=== PATIENT | male | born 1995 | race Caucasian/White ===

== ENCOUNTER 2016-11-02 14:27 | Emergency (ER) | payer OTHER ==
[~2016-11-02] VITALS: Ht 180.3 cm; Wt 73.0 kg
[2016-11-02 14:30] VITALS: BP 165/86; PULSE 18; PULSE 76; RESP 15; TEMP 98.1; O2SAT 99
[2016-11-02] MEDS ORDERED: MORPHINE SULFATE 4 MG/ML INJ IV PUSH ONE (15:15)
--- NOTE | 2016-11-02 15:28 | RADRPT ---
EXAM DATE/TIME: 11/02/2016 14:50 [facility] COMPARISON: No previous studies available for comparison. INDICATIONS : Dislocation. MEDICAL HISTORY : dislocation of right shoulder SURGICAL HISTORY : None. ENCOUNTER: Initial ACUITY: 1 day PAIN SCORE: 10/10 LOCATION: Right shoulder FINDINGS: There is anterior dislocation of the glenohumeral joint. I don't see a displaced fracture. Soft tissu es are within normal limits. CONCLUSION: Anteriorly dislocated glenohumeral joint. Steve Low MD on November 02, 2016 at 15:26 Board Certified Radiologist. This report was verified electronically.
[2016-11-02] MEDS ORDERED: PROPOFOL 500 MG/50 ML BTL IV ONE (15:30)
--- NOTE | 2016-11-02 16:24 | PD ---
HPI Chief Complaint: Injury Time Seen by Provider: 15:10 Travel History International Travel<30 days: No Contact w/Intl Traveler<30days: No Traveled to known affect area: No History of Present Illness HPI Patient is a 20-year-old male who [place] the [place] when he fell dislocating his right shoulder. Patient states he's had one prior dislocation of his right shoulder and at that time he had to be given a dose of morphine and was able to be reduced. [place]. Denies any alcohol or drug abuse tonight. Denies any head neck back pain or other extremity injury. Denies any torso or abdomen injury. Incident happened just prior to arrival. States his pain is fairly mild. [facility] Past Medical History Medical History: Denies Significant Hx Medical other: Yes (left dislocation) Influenza Vaccination: Yes Past Surgical History Surgical History: No Previous Surgery Social History Alcohol Use: No Tobacco Use: No Substance Use: No Allergies-Medications (Allergen,Severity, Reaction): Coded Allergies: No Known Allergies (Unverified , 11/02/16) Review of Systems Except as stated in HPI: all other systems reviewed are Neg Physical Exam Narrative GENERAL: Well-developed well-nourished no apparent distress] SKIN: Warm and dry. HEAD: Atraumatic. Normocephalic. EYES: Pupils equal and round. No scleral icterus. No injection or drainage. ENT: No nasal bleeding or discharge. Mucous membranes pink and moist. NECK: Trachea midline. No JVD. CARDIOVASCULAR: Regular rate and rhythm. No murmur appreciated. RESPIRATORY: No accessory muscle use. Clear to auscultation. Breath sounds equal bilaterally. GASTROINTESTINAL: Abdomen soft, non-tender, nondistended. Hepatic and splenic margins not palpable. MUSCULOSKELETAL: No obvious deformities. No clubbing. No cyanosis. No edema. Right upper extremity: There is an obvious anterior dislocation of the glenohumeral joint. There is no deformity to the humerus elbow forearm wrist or hand. No tenderness at any of these other joints. Pulses motor and sensory intact distally. Full range of motion of the elbow, pulses are 2+ at radius. Left upper extremity: No deformity at the shoulder elbow wrist or hand. Pulses motor and sensory intact distally. NEUROLOGICAL: Awake and alert. No obvious cranial nerve deficits. Motor grossly within normal limits. Normal speech. PSYCHIATRIC: Appropriate mood and affect; insight and judgment normal. Data Data Last Documented VS Vital Signs Date Time Temp Pulse Resp B/P Pulse Ox O2 Delivery O2 Flow Rate FiO2 11/02/16 14:30 98.1 76 15 165/86 99 Orders Shoulder, Limited(2vws) (11/02/16 ) Morphine Inj (Morphine Inj) (11/02/16 15:15) Propofol 500 Mg/50 Ml Inj (Diprivan 500 (11/02/16 15:30) Shoulder, One View (11/02/16 ) Sling And Swathe (11/02/16 ) [facility] Medical Decision Making Medical Screen Exam Complete: Yes Emergency Medical Condition: Yes Differential Diagnosis Shoulder dislocation, fracture, strain, sprain Narrative Course Patient was roomed in the emergency department, attempts to reduce him with morphine alone were unsuccessful. Illicit there are help of Dr. Coffman to reduce as I sedated and we were successful. Patient had no untoward event suffered as a result of the sedation and reduction. He is placed in a sling and swath. Postreduction x-rays confirmed reduction. Pulse motor and sensory were confirmed after reduction and he is stable for discharge. He has a friend also on [place] with him who is clinically sober and will drive him home. He was able to ambulate from the emergency department in no apparent distress. Procedures Procedure Narrative After the risks and benefits were discussed the following procedure was performed: MODERATE SEDATION: After risks benefits competitions and alternatives were discussed with the patient including apnea, hypotension and hypoxia the patient verbally consented and signed formal consent for procedural sedation and reduction. I also discussed him the risks of having fracture and nerve or blood vessel damage. The patient was placed on a injection mold technician and pulse oximetry as well as end tidal capnography. An ambu bag and suction was immediately available at bedside. The patient was monitored by the nurse and by me. Oxygen saturation, heart rate and blood pressure were monitored. Procedural sedation was acheived using a total of 110mg Propofol, please see sedation notes for details.. The patient was observed until awake and alert. Procedural Sedation time in attendance was 10 minutes. Patient had no apnea no hypoxia and no hypotension during the sedation, immediately after he was reduced he had return of normal mental status. Diagnosis Primary Impression: Shoulder dislocation Qualified Code: S43.004A - Shoulder dislocation, right, initial encounter Referrals: Derrick Reyes MD Disposition: 01 DISCHARGE HOME Condition: Stable Aniceto Espinoza MD Nov 02, 2016 16:24
--- NOTE | 2016-11-02 16:30 | RADRPT ---
EXAM DATE/TIME: 11/02/2016 15:56 [facility] COMPARISON: SHOULDER RIGHT LTD (2VWS), November 02, 2016, 14:50. INDICATIONS : Post reduction MEDICAL HISTORY : dislocated right shoulder SURGICAL HISTORY : None. ENCOUNTER: Initial ACUITY: 1 day PAIN SCORE: Non-responsive. LOCATION: Right shoulder FINDINGS: The dislocation seen earlier today has been reduced. Glenohumeral joint alignment now appears within normal limits on this one view study. No displaced fracture seen. Soft tissues are within normal limi ts. CONCLUSION: Interim reduction of the previously seen anterior dislocation of the glenohumeral joint. No perceptib le fracture. Steve Low MD on November 02, 2016 at 16:27 Board Certified Radiologist. This report was verified electronically.
--- NOTE | 2016-11-02 16:31 | PD ---
Physical Exam Narrative GENERAL: Well-nourished, well-developed patient. SKIN: Warm and dry. HEAD: Normocephalic EYES: No injection or drainage. ENT: No nasal drainage noted. NECK: Supple, trachea midline. CARDIOVASCULAR: Regular rate and rhythm RESPIRATORY: No increased effort. No accessory muscle use. EXTREMITIES: Right shoulder dislocation, neurovascularly intact NEUROLOGICAL: Awake and alert. Motor and sensory grossly within normal limits. Normal speech. Data Data Last Documented VS Vital Signs Date Time Temp Pulse Resp B/P Pulse Ox O2 Delivery O2 Flow Rate FiO2 11/02/16 14:30 98.1 76 15 165/86 99 Orders Shoulder, Limited(2vws) (11/02/16 ) Morphine Inj (Morphine Inj) (11/02/16 15:15) Propofol 500 Mg/50 Ml Inj (Diprivan 500 (11/02/16 15:30) Shoulder, One View (11/02/16 ) [facility] Supervised Visit with MONIQUE: No Interpretation(s) Last 24 hours Impressions Shoulder X-Ray 11/02/16 0000 Signed Impressions: Service Date/Time: Wednesday, November 02, 2016 14:50 - CONCLUSION: Anteriorly dislocated glenohumeral joint. Steve Low MD Narrative Course Assisted Dr. Espinoza with reduction After the risks and benefits were discussed the following procedure was performed: With conscious sedation using propofol by Dr. Espinoza, reduction of right shoulder with external rotation and abduction was successful and was neurovascularly intact after, patient tolerated procedure. Diagnosis Primary Impression: Shoulder dislocation Qualified Code: S43.004A - Shoulder dislocation, right, initial encounter Referrals: Derrick Reyes MD Disposition: 01 DISCHARGE HOME Condition: Stable Carmen Coffman MD Nov 02, 2016 16:31
== END 2016-11-02 16:53 | disposition home or self-care (01) ==
LOC: NEPB 14:27
DX: S43.014A Anterior dislocation of right humerus, initial encounter (principal); W18.39XA Other fall on same level, initial encounter; Y93.68 Activity, volleyball (beach) (court); Y92.832 Beach as the place of occurrence of the external cause
CPT/HCPCS: 23650; 73020; 73030; 96374; 99156; 99283; J2270